=== PATIENT | female | born 1975 | race Caucasian/White ===

== ENCOUNTER 2017-04-18 16:29 | Emergency (ER) | payer OTHER ==
[2017-04-18 16:42] VITALS: BP 121/85; PULSE 77; RESP 18; TEMP 97.9
--- NOTE | 2017-04-18 17:42 | XR ---
EXAMINATION TYPE: XR chest 2V DATE OF EXAM: 04/18/2017 COMPARISON: NONE HISTORY: Cough and congestion TECHNIQUE: Frontal and lateral views of the chest are obtained. FINDINGS: There is no focal air space opacity, pleural effusion, or pneumothorax seen. The cardiac silhouette size is within normal limits. The osseous structures are intact. Mild degenerative haider es of the thoracic spine are seen. IMPRESSION: No acute cardiopulmonary process.
--- NOTE | 2017-04-18 17:52 | ED ---
General Adult HPI - General Chief complaint: ENT Stated complaint: URI Time Seen by Provider: 04/18/17 16:46 Source: patient Mode of arrival: ambulatory Limitations: no limitations - History of Present Illness Initial comments: 41-year-old female patient presents to emergency department today for evaluation of cough, nasal congestion, and sore throat 6 days. Patient states that several of her family members are sick with similar symptoms. She states that the nasal drainage has improved however her face still feels full, and she feels that her cough is worsening. She states that it is productive, is unable to identify the color of her sputum production. She states that she feels tightness in her chest. She states that at the beginning of her illness 6 days ago she did have fevers however states that these have resolved. She is also complaining of left ear pain and fullness. Patient denies any shortness breath , chest pain, abdominal pain, nausea, vomiting, diarrhea, constipation, back pain, numbness, tingling, headache, visual changes, hematuria, dysuria, urinary frequency, urinary urgency, or any other complaints. Does admit to tobacco use. - Related Data Home Medications Medication Instructions Recorded Confirmed lamoTRIgine [LaMICtal] 2 tab PO BID 04/18/17 04/18/17 Previous Rx's Medication Instructions Recorded Albuterol Sulfate [Proair Hfa] 1 - 2 puff INHALATION Q6HR PRN #1 04/18/17 inhaler Amoxicillin/Potassium Clav 1 tab PO Q12HR #20 tab 04/18/17 [Augmentin 875-125 Tablet] Allergies Allergy/AdvReac Type Severity Reaction Status Date / Time No Known Allergies Allergy Verified 04/18/17 16:42 Review of Systems ROS Statement: Those systems with pertinent positive or pertinent negative responses have been documented in the HPI. ROS Other: All systems not noted in ROS Statement are negative. Past Medical History Past Medical History: No Reported History History of Any Multi-Drug Resistant Organisms: None Reported Past Surgical History: Adenoidectomy, Ear Surgery Past Psychological History: Anxiety, Bipolar, Depression Smoking Status: Current every day smoker Past Alcohol Use History: None Reported Past Drug Use History: None Reported General Exam Limitations: no limitations General appearance: alert, in no apparent distress Head exam: Present: atraumatic, normocephalic, normal inspection Eye exam: Present: normal appearance, PERRL, EOMI. Absent: scleral icterus, conjunctival injection, periorbital swelling ENT exam: Present: normal exam, normal oropharynx, mucous membranes moist. Absent: TM's normal bilaterally (Left tympanic membrane bulging, erythema, fluid behind the membrane.) Neck exam: Present: normal inspection. Absent: tenderness, meningismus, lymphadenopathy Respiratory exam: Present: normal lung sounds bilaterally, wheezes (Faint wheezing right upper lobe posterior). Absent: respiratory distress, rales, rhonchi, stridor, chest wall tenderness, accessory muscle use Cardiovascular Exam: Present: regular rate, normal rhythm, normal heart sounds. Absent: systolic murmur, diastolic murmur, rubs, gallop, clicks GI/Abdominal exam: Present: soft, normal bowel sounds. Absent: distended, tenderness, guarding, rebound, rigid Neurological exam: Present: alert, oriented X3, CN II-XII intact Psychiatric exam: Present: normal affect, normal mood Skin exam: Present: warm, dry, intact, normal color. Absent: rash Course Vital Signs 04/18/17 16:39 Temperature 97.9 F Pulse Rate 77 Respiratory 18 Rate Blood Pressure 121/85 O2 Sat by Pulse 96 Oximetry Medical Decision Making - Medical Decision Making 41-year-old female patient presented for evaluation of upper respiratory symptoms and cough. Physical examination did reveal that her left tympanic membrane was bulging and red. Also did appreciate some faint wheezing in the right upper lobe. Patient will be discharged home with a prescription for Augmentin 10 days. She will be given a prescription for pro-air inhaler for shortness of breath or wheezing. She is instructed to follow-up with her primary care physician for recheck in 1-2 days. She is instructed to return here immediately for any new, worsening, or concerning symptoms. Patient verbalizes understanding and agrees with this plan. - Radiology Data Radiology results: report reviewed, image reviewed Frontal and lateral views of the chest are obtained and shows no focal airspace opacity, pleural effusion, or pneumothorax. The cardiac silhouette size is within normal limits. The osseous structures are intact. Mild degenerative changes of the thoracic spine are seen. Impression by Dr. Nunn shows no acute cardiopulmonary process. Disposition Clinical Impression: Acute bronchitis, Otitis media Disposition: HOME SELF-CARE Condition: Good Instructions: Otitis Media (ED), Acute Bronchitis (ED) Additional Instructions: Continue taking [id number] nasal decongestants. Continue over-the- counter cough suppressants. Take prescription educations as directed. Follow up with her primary care physician for recheck one to 2 days. Return here immediately for any new, worsening, or concerning symptoms. Prescriptions: Albuterol Sulfate [Proair Hfa] 1 - 2 puff INHALATION Q6HR PRN #1 inhaler PRN Reason: Shortness of Breath/Wheezing Amoxicillin/Potassium Clav [Augmentin 875-125 Tablet] 1 tab PO Q12HR #20 tab Referrals: None,Stated [Primary Care Provider] - 1-2 days Time of Disposition: 17:52
== END 2017-04-18 18:01 | disposition home or self-care (01) ==
LOC: EC 16:29
DX: J20.9 Acute bronchitis, unspecified (principal); H66.92 Otitis media, unspecified, left ear; F17.200 Nicotine dependence, unspecified, uncomplicated; Z79.899 Other long term (current) drug therapy
CPT/HCPCS: 71020; 99283